=== PATIENT | male | born 1945 | race Caucasian/White ===

== ENCOUNTER 2019-10-17 14:22 | Emergency (ER) | payer OTHER ==
[2019-10-17 15:30] LABS: Urine Blood NEGATIVE (NEG); Urine Glucose NEGATIVE (NEG); Urine Protein NEGATIVE (NEG); Urine Specific Gravity 1.015 (1.005-1.030); Urine pH 6.5 (5.0-7.0)
--- NOTE | 2019-10-17 15:45 | RAD REPORT ---
EXAM DESCRIPTION: CT - Stone Protocol - 10/17/2019 3:28 pm CLINICAL HISTORY: Abdominal pain. COMPARISON: None. TECHNIQUE: Computed axial tomography of the abdomen pelvis was obtained without oral or IV contrast. Lack of IV and oral contrast limits evaluation of solid organs, bowel, and vessels. Coronal reformat odessa images were obtained and reviewed. All CT scans are performed using dose optimization technique as appropriate and may include automated exposure control or mA/KV adjustment according to patient size. FINDINGS: A renal calculus is not seen. An ureteral calculus is not noted. A bladder calculus is not present. Moderate left and mild right hydronephrosis. Ureters are dilated to the level of the bladde r. The bladder is distended containing diverticula and saccules. The prostate gland is markedly enlarged. 24 millimeter low-density cystic mass liver. Additional smaller low-density cystic mass. Both are non specific without IV contrast but probably represent cysts. Spleen, and adrenals appear grossly normal. The pancreas is atrophic. Diverticula stem from the colon without evidence of diverticulitis. The appendix appears normal Small bilateral hernias contain fat Small hiatal hernia IMPRESSION: Negative for a genitourinary calculus Marked prostatic enlargement. Moderate left and mild right hydronephrosis. Ureters are dilated to the level of the bladder. The mike dder is distended. All of these findings may be secondary to a bladder outlet obstruction secondary t o marked enlargement of the prostate
[2019-10-17] MEDS ORDERED: NA CHLORIDE 0.9% 1,000 ML ONE (15:48)
[2019-10-17 15:51] LABS: Absolute Lymphocytes (CBC) 0.6 K/uL (0.7-4.9); Basophils % 0.2 % (0-1.3); Hematocrit 47.5 % (39.6-49.0); Lymphocytes % 5.4 % (15.3-44.8); MPV 8.4 fL (7.6-11.3); RBC Red Blood Cell Count 5.13 M/uL (4.33-5.43)
[2019-10-17 16:14] LABS: Albumin 4.2 g/dL (3.4-5.0); Bilirubin Direct 0.2 mg/dL (0-0.2); Bilirubin Total 0.7 mg/dL (0.2-1.0); Potassium 3.8 mmol/L (3.5-5.1); Protein, Total 7.9 g/dL (6.4-8.2)
[2019-10-17 17:40] LABS: Blood Morphology Comment NOT SEEN (NOT SEEN); Platelet Estimate ADEQ; White Blood Cell Scan OK
--- NOTE | 2019-10-17 17:55 | ER ---
Nurse's Notes [facility] Name: Hamilton Guadalupe Age: 74 yrs Sex: Male : 1945 Arrival Date: 10/17/2019 Time: 14:23 Bed 25 Private MD: Diagnosis: Retention of urine;Hydronephrosis;Prostatomegaly;Renal insufficiency Presentation: 10/17 14:38 Presenting complaint: Patient states: i think i have urinary infection. i have lower mg2 abdominal pain. Transition of care: patient was not received from another setting of care. Onset of symptoms was October 16, 2019. Risk Assessment: Do you want to hurt yourself or someone else? Patient reports no desire to harm self or others. Initial Sepsis Screen: Does the patient meet any 2 criteria? No. Patient's initial sepsis screen is negative. Does the patient have a suspected source of infection? No. Patient's initial sepsis screen is negative. Care prior to arrival: None. 14:38 Method Of Arrival: Ambulatory mg2 14:38 Acuity: MEI 3 mg2 Triage Assessment: 14:30 General: Appears uncomfortable, Behavior is calm, cooperative. ls4 14:30 Pain: Denies pain. Neuro: No deficits noted. Cardiovascular: No deficits noted. ls4 Respiratory: No deficits noted. GI: No deficits noted. : Bladder is distended Reports urinary frequency, since A FEW DAYS AGO. Musculoskeletal: No deficits noted. Historical: - Allergies: 14:42 No Known Allergies; mg2 - Home Meds: 14:42 levothyroxine oral [Active]; mg2 - PMHx: 14:42 Hypothyroidism; mg2 - PSHx: 14:42 knee sx; Tonsillectomy; mg2 - Immunization history:: Flu vaccine is not up to date. - Social history:: Smoking status: Patient/guardian denies using alcohol, street drugs, IV drugs. - Ebola Screening: : No symptoms or risks identified at this time. Screenin:30 Abuse screen: Denies threats or abuse. Denies injuries from another. Nutritional ls4 screening: No deficits noted. Tuberculosis screening: No symptoms or risk factors identified. Fall Risk None identified. Assessment: 19:09 Reassessment: Patient and/or family updated on plan of care and expected duration. Pain ls4 level reassessed. Patient is alert, oriented x 3, equal unlabored respirations, skin warm/dry/pink. 1000 URINE OUT PUT. LEG BAG APPLIED. Vital Signs: 14:39 BP 171 / 94; Pulse 116; Resp 18; Temp 98.3; Pulse Ox 96% on R/A; Weight 79.83 kg; mg2 Height 5 ft. 9 in. (175.26 cm); Pain 6/10; 17:34 BP 130 / 82; Pulse 101; Resp 18; Temp 98.5; Pulse Ox 98% ; Pain 0/10; ms 14:39 Body Mass Index 25.99 (79.83 kg, 175.26 cm) mg2 ED Course: 14:23 Patient arrived in ED. ds1 14:30 Patient has correct armband on for positive identification. Placed in gown. Bed in low ls4 position. Call light in reach. Side rails up X2. jig fitter on. Pulse ox on. NIBP on. Lights dimmed. Warm blanket given. Pillow given. Verbal reassurance given. Diet: Patient is NPO. 14:30 No provider procedures requiring assistance completed. Inserted saline lock: 20 gauge ls4 in right antecubital area, using aseptic technique. 14:39 Triage completed. mg2 14:40 Arm band placed on. EKG completed in triage. Results shown to MD. mg2 14:59 Lisa Coelho, RN is Primary Nurse. ls4 15:00 Kasia Fierro FNP-C is PHCP. snw 15:00 Yunior Workman MD is Attending Physician. snw 15:28 CT Stone Protocol In Process Unspecified. EDMS 16:00 Del Cid cath inserted, using sterile technique, 16 Fr., by la, balloon inflated, returned ms clear yellow urine. Patient tolerated well. 18:40 IV discontinued. ls4 Administered Medications: 14:52 Drug: NS 0.9% 1000 ml Route: IV; Rate: 75 ml/hr; Site: left antecubital; ls4 16:19 Drug: NS 0.9% 500 ml Volume: 500 ml; Route: IV; Rate: 1 bolus; Site: left antecubital; ls4 Output: 16:00 Urine: 1450ml (Del Cid); Total: 1450ml. ms Outcome: 17:54 Discharge ordered by . snw 18:54 Patient left the ED. ls4 19:08 Discharged to home ambulatory, with family. ls4 19:08 Condition: stable 19:08 Discharge instructions given to Instructed on discharge instructions, follow up and referral plans. medication usage, Demonstrated understanding of Prescriptions given X 1. Signatures: Dispatcher [employer] EDKasia Maciel, PUFF IRON OPERATOR-C PUFF IRON OPERATOR-Csnw Taina Couch dsTati Lloyd ms, Michele, DAVID RN mg2 Lisa Coelho RN RN ls4
--- NOTE | 2019-10-17 17:55 | EDPHYS ---
Physician Documentation [facility] Name: Hamilton Guadalupe Age: 74 yrs Sex: Male : 1945 Arrival Date: 10/17/2019 Time: 14:23 Bed 25 Private MD: ED Physician Yunior Workman HPI: 10/17 15:10 This 74 yrs old Male presents to ER via Ambulatory with complaints of Urinary Problem. snw 15:10 Onset: The symptoms/episode began/occurred suddenly, last night, and became worse this snw morning, and became persistent. Associated signs and symptoms: Pertinent positives: abdominal pain, Pertinent negatives: dysuria, fever. The patient has not experienced similar symptoms in the past. [place], says he was recently told his PSA was increased. Historical: - Allergies: 14:42 No Known Allergies; mg2 - Home Meds: 14:42 levothyroxine oral [Active]; mg2 - PMHx: 14:42 Hypothyroidism; mg2 - PSHx: 14:42 knee sx; Tonsillectomy; mg2 - Immunization history:: Flu vaccine is not up to date. - Social history:: Smoking status: Patient/guardian denies using alcohol, street drugs, IV drugs. - Ebola Screening: : No symptoms or risks identified at this time. ROS: 15:10 Eyes: Negative for injury, pain, redness, and discharge, ENT: Negative for injury, snw pain, and discharge, Neck: Negative for injury, pain, and swelling, Cardiovascular: Negative for chest pain, palpitations, and edema, Respiratory: Negative for shortness of breath, cough, wheezing, and pleuritic chest pain, Back: Negative for injury and pain, MS/Extremity: Negative for injury and deformity, Skin: Negative for injury, rash, and discoloration, Neuro: Negative for headache, weakness, numbness, tingling, and seizure. 15:10 Constitutional: Positive for malaise. 15:10 Abdomen/GI: Positive for abdominal pain, of the right lower quadrant and left lower quadrant. 15:10 : Positive for urinary symptoms, urinary frequency, small amounts. Exam: 15:08 Constitutional: This is a well developed, well nourished patient who is awake, alert, snw and in no acute distress. Head/Face: Normocephalic, atraumatic. Eyes: Pupils equal round and reactive to light, extra-ocular motions intact. Lids and lashes normal. Conjunctiva and sclera are non-icteric and not injected. Cornea within normal limits. Periorbital areas with no swelling, redness, or edema. ENT: Nares patent. No nasal discharge, no septal abnormalities noted. Tympanic membranes are normal and external auditory canals are clear. Oropharynx with no redness, swelling, or masses, exudates, or evidence of obstruction, uvula midline. Mucous membranes moist. Neck: Trachea midline, no thyromegaly or masses palpated, and no cervical lymphadenopathy. Supple, full range of motion without nuchal rigidity, or vertebral point tenderness. No Meningismus. Chest/axilla: Normal chest wall appearance and motion. Nontender with no deformity. No lesions are appreciated. 15:08 Respiratory: Lungs have equal breath sounds bilaterally, clear to auscultation and percussion. No rales, rhonchi or wheezes noted. No increased work of breathing, no retractions or nasal flaring. Back: No spinal tenderness. No costovertebral tenderness. Full range of motion. Skin: Warm, dry with normal turgor. Normal color with no rashes, no lesions, and no evidence of cellulitis. MS/ Extremity: Pulses equal, no cyanosis. Neurovascular intact. Full, normal range of motion. Neuro: Awake and alert, GCS 15, oriented to person, place, time, and situation. Cranial nerves II-XII grossly intact. Motor strength 5/5 in all extremities. Sensory grossly intact. Cerebellar exam normal. Normal gait. Psych: Awake, alert, with orientation to person, place and time. Behavior, mood, and affect are within normal limits. 15:08 Cardiovascular: Rate: tachycardic, Rhythm: regular, Heart sounds: normal. 15:08 Abdomen/GI: Inspection: abdomen appears normal, Bowel sounds: normal, Palpation: mild abdominal tenderness, in the right lower quadrant and left lower quadrant, firmness to palpation to lower abdomen, will check bladder for retention, [place]aver[place] prn. Vital Signs: 14:39 BP 171 / 94; Pulse 116; Resp 18; Temp 98.3; Pulse Ox 96% on R/A; Weight 79.83 kg; mg2 Height 5 ft. 9 in. (175.26 cm); Pain 6/10; 17:34 BP 130 / 82; Pulse 101; Resp 18; Temp 98.5; Pulse Ox 98% ; Pain 0/10; ms 14:39 Body Mass Index 25.99 (79.83 kg, 175.26 cm) mg2 MDM: 15:00 Patient medically screened. snw 17:14 Data reviewed: vital signs, nurses notes. Data interpreted: Pulse oximetry: on room air snw is 96 %. Interpretation: acceptable. Counseling: I had a detailed discussion with the patient and/or guardian regarding: the historical points, exam findings, and any diagnostic results supporting the discharge/admit diagnosis, the presence of at least one elevated blood pressure reading (>120/80) during this emergency department visit, lab results, radiology results, the need for outpatient follow up, for definitive care, to return to the emergency department if symptoms worsen or persist or if there are any questions or concerns that arise at home. Response to treatment: the patient's symptoms have markedly improved after treatment. Special discussion: Based on the history and exam findings, there is no indication for further emergent testing or inpatient evaluation. I discussed with the patient/guardian the need to see the urologist for further evaluation of the symptoms. 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 Encouraged to continue flomax. I snw will discharge with Augmentin and dc Bactrim secondary to creatinine. 10/17 14:51 Order name: Urine Dipstick--Ancillary (enter results); Complete Time: 16:13 bd 10/17 15:07 Order name: Basic Metabolic Panel; Complete Time: 16:15 snw 10/17 15:07 Order name: CBC with Diff; Complete Time: 17:43 snw 10/17 15:07 Order name: Creatinine for Radiology; Complete Time: 16:13 snw 10/17 15:07 Order name: Hepatic Function; Complete Time: 16:15 snw 10/17 15:07 Order name: Lipase; Complete Time: 16:15 snw 10/17 15:06 Order name: Misc. Order: post void residual; Complete Time: 15:28 snw 10/17 15:07 Order name: IV Saline Lock; Complete Time: 15:28 snw 10/17 15:07 Order name: Labs collected and sent; Complete Time: 15:28 snw 10/17 15:07 Order name: CT Stone Protocol; Complete Time: 16:13 snw 10/17 17:40 Order name: CBC Smear Scan; Complete Time: 17:43 EDMS Administered Medications: 14:52 Drug: NS 0.9% 1000 ml Route: IV; Rate: 75 ml/hr; Site: left antecubital; ls4 16:19 Drug: NS 0.9% 500 ml Volume: 500 ml; Route: IV; Rate: 1 bolus; Site: left antecubital; ls4 Disposition: 10/18 08:00 Co-signature as Attending Physician, Yunior Workman MD I agree with the assessment and tw4 plan of care. Disposition: 10/17/19 17:54 Discharged to Home. Impression: Retention of urine, Hydronephrosis, Prostatomegaly, Renal insufficiency. - Condition is Stable. - Discharge Instructions: [place] Catheter Care, Adult, Acute Urinary Retention, Male, Hydronephrosis. - Prescriptions for Augmentin 875- 125 mg Oral Tablet - take 1 tablet by ORAL route every 12 hours for 10 days; 20 tablet. - Medication Reconciliation Form, Thank You Letter, Antibiotic Education, Prescription Opioid Use form. - Follow up: Emergency Department; When: As needed; Reason: Worsening of condition. Follow up: Private Physician; When: 1 week; Reason: Recheck today's complaints, Continuance of care, Re-evaluation by your physician. Signatures: Dispatcher [employer] EDUT Kasia Fierro, MANAGER LAN-C MANAGER LAN-Csnw Yunior Workman MD MD tw4 Bartolo Hernandez RN RN mg2 Lisa Coelho RN RN ls4 Corrections: (The following items were deleted from the chart) 10/17 18:54 17:54 10/17/2019 17:54 Discharged to Home. Impression: Retention of urine; ls4 Hydronephrosis; Prostatomegaly; Renal insufficiency. Condition is Stable. Forms are Medication Reconciliation Form, Thank You Letter, Antibiotic Education, Prescription Opioid Use. Follow up: Emergency Department; When: As needed; Reason: Worsening of condition. Follow up: Private Physician; When: 1 week; Reason: Recheck today's complaints, Continuance of care, Re-evaluation by your physician. snw
[2019-10-17 21:35] VITALS: BP 130/82; TEMP 98.5; O2SAT 98
== END 2019-10-17 18:54 | disposition home or self-care (01) ==
LOC: ER 14:22
DX: R33.9 Retention of urine, unspecified (principal); N13.30 Unspecified hydronephrosis; N40.0 Benign prostatic hyperplasia without lower urinary tract symptoms; N28.9 Disorder of kidney and ureter, unspecified; E03.9 Hypothyroidism, unspecified
CPT/HCPCS: 85025; 80048; 36415; 80076; 81003; 83690; 76377; 74176; 51702; 99285; J7030